=== PATIENT | female | born 1990 | race Caucasian/White ===

== ENCOUNTER 2019-11-25 18:55 | Inpatient (IN) | payer BC ==
[~2019-11-25] VITALS: Ht 167.7 cm; Wt 118.4 kg
[~2019-11-25 18:55] MED LIST: ALBU18HF2 IH; CETI10CA PO; MONT10TA21 PO; RT-ALBUINH IH
--- NOTE | 2019-11-25 19:00 | NUR ---
BETTY CAMPOS , / presented to unit from ED, accompanied by , for INDUCTION. BETTY CAMPOS weighed, gowned, voided, and to bed. EFHM and TOCO applied, VS taken. BETTY CAMPOS oriented to bed controls, call light, TV, heat, and A/C controls.
[2019-11-25] MEDS ORDERED: MISOPROSTOL 100 MCG (CYTOTEC) TAB PO ONE (19:15)
[2019-11-25] MEDS ORDERED: MINERAL OIL CONCENTRATE 99.9% 15 ML UDC TOP PRN (19:15)
[2019-11-25] MEDS ORDERED: D5 LR IV SOLUTION 1,000 ML IV ONE (19:27)
[2019-11-25] MEDS: D5 LR IV SOLUTION 1,000 ML IV SCH (19:54)
[2019-11-25 20:03] VITALS: BP 125/76
[2019-11-25 20:08] LABS: BASOPHILS % (AUTO) 0 % (0-10); EOSINOPHILS # (AUTO) 0.3 10^3/uL (0.0-0.3); EOSINOPHILS % (AUTO) 2 % (0-10); HEMATOCRIT 32 % (35-52); HEMOGLOBIN 10.1 G/DL (11.5-16.0); LYMPHOCYTES # (AUTO) 2.5 X 10^3 (1.0-4.0); LYMPHOCYTES % (AUTO) 15 % (12-44); MEAN CORPUSCULAR HEMOGLOBIN 26 PG (25-34); MEAN CORPUSCULAR HGB CONC 32 G/DL (32-36); MEAN CORPUSCULAR VOLUME 81 FL (80-99); MEAN PLATELET VOLUME 8.9 FL (7.4-10.4); MONOCYTES # (AUTO) 1.1 X 10^3 (0.0-1.0); MONOCYTES % (AUTO) 7 % (0-12); NEUTROPHILS # (AUTO) 12.8 X 10^3 (1.8-7.8); NEUTROPHILS % (AUTO) 76 % (42-75); PLATELET COUNT 471 10^3/uL (130-400); RED CELL DISTRIBUTION WIDTH 15.6 % (10.0-14.5); WHITE BLOOD COUNT 16.7 10^3/uL (4.3-11.0)
--- NOTE | 2019-11-25 20:10 | NUR ---
Dr. Beckwith called for induction orders. Update on pt. Strip, SVE, and vitals reviewed. Orders received.
[2019-11-25 20:15] VITALS: BP 138/85
--- OUTSIDE RECORDS SUMMARY | 2019-11-25 20:21 | XMS REPORT | Continuity of Care Document ---
Author Author The BETTY Mcclellan Organization [employer] Address Unknown Phone Unavailable Allergies Active Description Code Type Severity Reaction Onset Reported/Identified Relationship to Patient Clinical Status Yes No Known Drug Allergies [id number] Drug Allergy Unknown N/A 01/02/2011 Medications There is no data. Problems Date Dx Coded Attending Type Code Diagnosis Diagnosed By 11/21/2019 ALEXYSARNOLD TREVIÑO MARGARET Lily Ot O13.3 GESTATIONAL HTN W/O SIGNIFICANT PROTEINU 11/21/2019 ALEXYSMARGARET BARRETT DO Ot Z3A.00 WEEKS OF GESTATION OF NOT SPEC 11/25/2019 Ot R10.12 LEF T UPPER QUADRANT PAIN 11/25/2019 Ot J18.9 PNEU MONIA, UNSPECIFIED ORGANISM 11/25/2019 Ot J18.9 PNEU MONIA, UNSPECIFIED ORGANISM 11/25/2019 Ot J18.9 PNEU MONIA, UNSPECIFIED ORGANISM 11/25/2019 Ot Z36.9 ENCO UNTER FOR SCREENING, UNSPE 11/25/2019 Ot Z3A.20 20 WEEKS GESTATION OF 11/25/2019 Ot O13.9 GEST ATIONAL HTN W/O SIGNIFICANT PROTEINU Procedures There is no data. Results Test Result Range Urine protein/creatinine mass ratio - 11:27 Urine protein measurement (mass/volume) 22 mg/dL 6-12 Urine creatinine measurement (mass/volume) 70 mg/d L 30-125 Urine protein/creatinine mass ratio 0.31 NRG Encounters ACCT No. Visit Date/Time Discharge Status Pt. Type Provider Facility Loc./Unit Complaint [id number] 11/19/2019 11:00:00 020 23:59:59 CLS Outpatient MARGARET BABCOCK DO Via [facility] LABNPT [id number] 11/25/2019 18:56:[address] Inpatient ALEXYSMARGARET BARRETT DO [facility] LDRP INDUCTION [id number] 11/20/2019 13:40:00 Document Registration [id number] 11/13/2019 09:33:00 Document Registration [id number] 07/19/2019 09:53:00 Document Registration [id number] 12/29/2016 18:22:00 Document Registration [id number] 08/25/2016 16:34:00 Document Registration [id number] 08/17/2016 11:14:00 Document Registration [id number] 08/17/2016 09:20:00 Document Registration
[2019-11-25] MEDS ORDERED: FAMOTIDINE 20MG/2ML IV (PEPCID) ONE (20:25)
[2019-11-25] MEDS ORDERED: FAMOTIDINE 20MG/2ML IV (PEPCID) IVP ONE (20:30)
[2019-11-25 21:10] VITALS: BP 141/93
[2019-11-25] MEDS ORDERED: CATHETER FLUSH 10 ML SYR IV SCH (22:00)
[2019-11-25 22:10] VITALS: BP 151/72
[2019-11-25 23:10] VITALS: BP 136/79
[2019-11-26] VITALS (54 sets, daily range): BP systolic 128–188; BP diastolic 61–108
[2019-11-26] MEDS: MISOPROSTOL 100 MCG (CYTOTEC) TAB PO SCH ×2 (00:57→04:56)
[2019-11-26] MEDS: D5 LR IV SOLUTION 1,000 ML IV SCH ×2 (00:59→08:58)
[2019-11-26] MEDS ORDERED: OXYTOCIN PRE-MIX DRIP 500 ML IV SCH ×2 (08:03→17:07)
[2019-11-26] MEDS ORDERED: HYDROmorphone 2 MG/ML VIAL (DILAUDID) ONE (12:17)
[2019-11-26] MEDS ORDERED: HYDROmorphone 2 MG/ML VIAL (DILAUDID) IV ONE (12:30)
--- NOTE | 2019-11-26 13:12 | History & Physical-OB ---
OB - Chief Complaint & HPI Date/Time Date of Admission: Date of Admission: Nov 25, 2019 at 6:56 pm Date seen by a Provider: Nov 26, 2019 Time Seen by a Provider: 07:45 Chief Complaint/History OB-Reason for Admission/Chief: Induction of Labor Hx : 1 Hx Para: 0 Expected Date of Delivery: Dec 08, 2019 Gestational Age in Weeks: 38 Gestational Age in Days: 2 Indication for induction: medical complication Other reason for admission: Mild PreE Admission Nurse Assessment Rev: Yes History of Labs O pos Antibody neg RNI RPR NR HBsAg NR HIV NR GC neg GBS Neg Allergies and Home Medications Allergies Coded Allergies: cephalexin (Verified Allergy, Intermediate, hives, 11/25/19) Home Medications Albuterol Sulfate 18 Gm Hfa.aer.ad, 18 GM IH DAILY, (Reported) Albuterol Sulfate 1 Puff Puff, 1-2 PUFF IH Q4H, (Reported) 1 PUFF = 90 MCG Cetirizine HCl 10 Mg Capsule, 10 MG PO DAILY, (Reported) Montelukast Sodium 10 Mg Tablet, 10 MG PO DAILY, (Reported) Patient Home Medication List Home Medication List Reviewed: Yes OB - History Hx of Present Care: Yes Ultrasounds: Normal mid trimester US Obstetrical Complications: Pre-eclampsia Medical Complications: None Delivery History Adverse Rxn to Tranfusion: No Patient Past Medical History n/a Social History/Family History HIV/AIDS: No Sexually Transmitted Disease: No Alcohol Use: Denies Use Recreational Drug Use: No Immunizations Hepatitis A: Yes Hepatitis B: Yes OB - Admission Exam Physical Exam Vitals: Vital Signs 11/26/19 11/26/19 11/26/19 01:10 11:36 12:30 Temp 35.9 Pulse 100 Resp 18 B/P (MAP) 144/68 (93) Pulse Ox 98 O2 Delivery Room Air HEENT: NCAT Heart: Rhythm Normal Lungs: Clear Abdomen: Gravid Extremities: Normal Reflexes: Normal Cervical Dilatation: 1cm Effacement: 75% Station: -1 Membranes: Intact Heart Rate: 130's Decelerations: No Decelerations Short Term Variability: Present Web Application Tester Variability: Average (6-25) Contractions on Admission: 6-10 Minutes Apart Intensity: Mild Labs Laboratory Tests Test 11/25/19 19:50 Range/Units White Blood Count 16.7 H 4.3-11.0 10^3/uL Red Blood Count 3.89 L 4.35-5.85 10^6/uL Hemoglobin 10.1 L 11.5-16.0 G/DL Hematocrit 32 L 35-52 % Mean Corpuscular Volume 81 80-99 FL Mean Corpuscular Hemoglobin 26 25-34 PG Mean Corpuscular Hemoglobin Concent 32 32-36 G/DL Red Cell Distribution Width 15.6 H 10.0-14.5 % Platelet Count 471 H 130-400 10^3/uL Mean Platelet Volume 8.9 7.4-10.4 FL Neutrophils (%) (Auto) 76 H 42-75 % Lymphocytes (%) (Auto) 15 12-44 % Monocytes (%) (Auto) 7 0-12 % Eosinophils (%) (Auto) 2 0-10 % Basophils (%) (Auto) 0 0-10 % Neutrophils # (Auto) 12.8 H 1.8-7.8 X 10^3 Lymphocytes # (Auto) 2.5 1.0-4.0 X 10^3 Monocytes # (Auto) 1.1 H 0.0-1.0 X 10^3 Eosinophils # (Auto) 0.3 0.0-0.3 10^3/uL Basophils # (Auto) 0.0 0.0-0.1 10^3/uL OB - Assessment/Plan/Diagnosis Assessment Assessment: induction of labor Admission Dx 29 yo @ 38.2 Mild PreE Pitting edema Admission Status: Inpatient Order (span 2 midnights) Reason for Inpatient Admission: Induction of labor at term Plan Plan: Induction Induction Method: per Misoprostol Protocol MARGARET BABCOCK DO Nov 26, 2019 1:12 pm
[2019-11-26] MEDS ORDERED: fentaNYL 2 mcg/ml BUPIVA 0.125 100 ML ONE (15:40)
[2019-11-26] MEDS ORDERED: LIDOCAINE/EPI 2% 1:200,00 (XYLOCAINE) 10 ML VIAL ONE (16:13)
[2019-11-26] MEDS ORDERED: LIDOCAINE 1% INJ 20 ML 20 ML VIAL ONE (16:22)
[2019-11-26] MEDS ORDERED: KETOROLAC 30 MG/ML VIAL ONE (16:55)
[2019-11-26] MEDS ORDERED: TETANUS,DIPTH,PERTUSS P/F (BOOSTRIX) 0.5 ML VIAL IM ONE (17:15)
[2019-11-26] MEDS ORDERED: WITCH HAZEL(TUCKS) 40 EA JAR TOP PRN (17:15)
[2019-11-26] MEDS ORDERED: DIBUCAINE (NUPERCAINAL) 1% OINT 30 GM TOP PRN (17:15)
[2019-11-26] MEDS ORDERED: MEASLES,MUMPS,RUBELLA 1 EA INJ SQ ONE (17:15)
[2019-11-26] MEDS ORDERED: BENZOCAINE/MENTHOL (DERMOPLAST) 60 ML CAN TP PRN (17:15)
--- NOTE | 2019-11-26 17:16 | OB Labor & Delivery Record ---
L&D History Date of Service Date of Service: Nov 26, 2019 History Expected Date of Delivery: Dec 08, 2019 Gestational Age in Weeks: 38 Hx : 1 Hx Para: 0 Complications Events: Routine care Operative Indications (Cesarea: N/A-Vaginal Delivery Intrapartal Events: None L&D Stage1 Stage One Onset of Labor - Date: Nov 26, 2019 Monitors and Tracing Monitor Mode: External Heart Rate: 135 Monitor Accelerations: Uniform Monitor Decelerations: None Station: -3 Retirement Variability: Average (6-10) Short Term Variability: Present Presentation: Vertex Vital Signs VS - Last 72 Hours, by Label 11/25/19 11/25/19 11/25/19 11/25/19 20:03 20:15 21:10 22:10 Temp 36.8 36.7 Pulse 116 129 114 109 Resp 20 B/P (MAP) 125/76 (92) 141/93 (109) 151/72 (98) Pulse Ox 97 O2 Delivery Room Air Room Air Room Air Room Air 11/25/19 11/26/19 11/26/19 11/26/19 23:10 00:10 01:10 02:10 Pulse 91 90 87 74 Resp 18 18 18 18 B/P (MAP) 136/79 (98) 135/78 (97) 132/75 (94) 135/78 (97) Pulse Ox 99 98 O2 Delivery Room Air Room Air Room Air Room Air 11/26/19 11/26/19 11/26/19 11/26/19 03:10 04:10 05:10 06:10 Temp 36.4 Pulse 86 80 98 86 Resp 18 18 18 18 B/P (MAP) 136/72 (93) 135/81 (99) 136/93 (107) 136/81 (99) O2 Delivery Room Air Room Air Room Air Room Air 11/26/19 11/26/19 11/26/19 11/26/19 07:10 08:10 08:31 08:33 Temp 36.2 Pulse 94 99 98 106 Resp 18 18 18 18 B/P (MAP) 141/90 (107) 148/82 (104) 169/82 (111) 174/82 (112) O2 Delivery Room Air Room Air Room Air Room Air 11/26/19 11/26/19 11/26/1920 08:46 09:01 09:18 09:31 Pulse 90 97 96 90 Resp 18 18 18 18 B/P (MAP) 165/79 (107) 158/86 (110) 151/65 (93) 131/63 (85) O2 Delivery Room Air Room Air Room Air Room Air 11/26/19 11/26/19 11/26/19 11/26/19 09:45 10:02 10:17 10:32 Pulse 95 97 93 93 Resp 18 18 18 18 B/P (MAP) 147/68 (94) 154/77 (102) 128/81 (97) 143/80 (101) O2 Delivery Room Air Room Air Room Air Room Air 11/26/19 11/26/19 11/26/19 11/26/19 10:47 11:00 11:15 11:36 Temp 35.9 Pulse 89 88 101 87 Resp 18 18 18 18 B/P (MAP) 138/73 (94) 142/84 (103) 142/82 (102) 145/75 (98) O2 Delivery Room Air Room Air Room Air Room Air 11/26/19 11/26/19 11/26/19 11/26/19 11:47 12:00 12:16 12:30 Pulse 102 102 96 100 Resp 18 18 18 18 B/P (MAP) 144/90 (108) 151/91 (111) 139/67 (91) 144/68 (93) O2 Delivery Room Air Room Air Room Air Room Air 11/26/19 11/26/19 11/26/19 11/26/19 12:46 12:48 13:02 13:16 Pulse 82 94 98 100 Resp 18 18 18 18 B/P (MAP) 151/86 (107) 159/93 (115) 134/72 (92) 136/104 (115) O2 Delivery Room Air Room Air Room Air Room Air 11/26/19 11/26/19 11/26/19 11/26/19 13:22 13:24 13:33 13:46 Pulse 97 87 99 115 Resp 18 18 8 18 B/P (MAP) 188/84 (118) 167/79 (108) 144/79 (100) 134/73 (93) O2 Delivery Room Air Room Air Room Air Room Air 11/26/19 11/26/19 14:01 14:15 Temp 36.3 Pulse 105 96 Resp 18 18 B/P (MAP) 140/86 (104) 147/87 (107) O2 Delivery Room Air Room Air Rupture of Membranes Spontaneous Ruture of Membrane: Yes Amniotic Membrane Rupture Time: 1242 Amniotic Membrane Fluid Desc.: Clear Vaginal Bleeding Description: Normal Show Progress/Notes Patient given PO cytotec overnight. Started on pitocin this AM, and AROM done around noon. She progressed rapidly and without epidural to complete and + 2 station. L&D Stage2 Stage Two Stage II Date: Nov 26, 2019 Monitors and Tracing Monitor Mode: External Heart Rate: 135 Monitor Accelerations: None Monitor Decelerations: Variable Retirement Variability: Average (6-10) Short Term Variability: Present Position: Right Occiput Anterior (Puedendal block done with minimal relief using 1% lidocaine w/o epi) Presentation: Vertex Cord Descript/Complications Cord Vessel Description: 3 Vessels Delivery Type Delivery Method: Spontaneous Vaginal Anterior Shoulder: Left Episiotomy/Perineal Laceration Laceraction(s)/Extensions: Yes Episiotomy Description: Midline Degree (describe repair) Midline episiotomy repaired using 3-0 and 2-0 vicryl suture in usual fashion Condition of Delivery 1 minute Comment: 7 5 minute Comment: 9 Notes Live male infant weight 6lbs 7 oz Condition of Infant Condition of Infant: Living Exam: No Observed Abnormalities Resuscitation Resuscitation: N/A - Spontaneous Resp L&D Stage3 Stage Three Stage III Date: Nov 26, 2019 Pictocin Pitocin Administration mu/min: 8 Pitocin ml/hr: 8 Pitocin Administration Comment: 30 mu wide open at delivery of placenta Placenta Delivery Placenta Delivery: Spontaneous Delivery Summary Summary Estimated blood loss (mL): 350 350 Attending at delivery: Carol Babcock DO Condition of Delivery Examined: Cervix Examined, Uterus Explored Post Hemorrhage: No Condition of Mother stable Condition of (s) stable CAROL BABCOCK DO Nov 26, 2019 17:16
[2019-11-26] MEDS ORDERED: IBUPROFEN 600 MG (MOTRIN) TAB PO SCH (18:00)
--- NOTE | 2019-11-26 19:15 | NUR ---
REFER TO LABOR FLOW SHEET.
--- NOTE | 2019-11-26 20:53 | NUR ---
Called Dr. Beckwith, update given, new order requested & rc'd for Lortab 1 tab q 4 hrs prn pain.
[2019-11-26] MEDS ORDERED: HYDROcodone/APAP 5 MG/325 MG (LORTAB) TAB PO PRN (21:00)
[2019-11-26] MEDS ORDERED: DOCUSATE SODIUM 100 MG (COLACE) CAP PO SCH (21:00)
[2019-11-26] MEDS ORDERED: CATHETER FLUSH 10 ML SYR IV SCH (22:00)
[2019-11-27] MEDS ORDERED: PRENATAL VITAMIN 1 EA TAB PO SCH (07:00)
[2019-11-27] MEDS ORDERED: FERROUS SULF 325 MG (IRON) TAB PO SCH (09:00)
[2019-11-27] MEDS ORDERED: LABETALOL 200 MG (NORMODYNE) TAB PO ONE (13:54)
--- NOTE | 2019-11-28 07:18 | Postpartum Progress Note ---
Note Note Day # 1 Subjective: Patient is without complaints. Ambulating, voiding. Tolerating a regular diet without nausea or vomiting. Normal lochia. Minor pain at episiotomy site. Pain is well controlled with oral pain medications. Breast feeding without issues. Objective: [] Physical Exam: General - Alert and oriented, no apparent distress Abdomen - Soft, appropriately tender to palpation, non-distended, fundus firm at umbilicus Extremities - no edema, negative Tavia's bilaterally [] Assessment: post- day # 1, status post 1 vaginal delivery. Recovering well, hemodynamically stable [] Plan: Routine care. Encourage breast feeding. Encourage ambulation. Ferrous sulfate supplementation. Plan for discharge [] RUFINO OBANDO [facility] Nov 28, 2019 07:18
--- NOTE | 2019-11-28 07:19 | Postpartum Progress Note ---
Note Note Day # [] Subjective: Patient is without complaints. Ambulating, voiding. Tolerating a regular diet without nausea or vomiting. Normal lochia. Pain is well controlled with oral pain medications. [] feeding. [] Objective: [] Physical Exam: General - Alert and oriented, no apparent distress Abdomen - Soft, appropriately tender to palpation, non-distended, fundus firm at umbilicus Extremities - no edema, negative Tavia's bilaterally [] Assessment: [] post- day # [], status post [] vaginal delivery. Recovering well, hemodynamically stable [] Plan: Routine care. Encourage breast feeding. Encourage ambulation. Ferrous sulfate supplementation. Plan for discharge [] RUFINO OBANDO [facility] Nov 28, 2019 07:19
[2019-11-28 08:35] LABS: HEMATOCRIT 29 % (35-52); HEMOGLOBIN 9.4 G/DL (11.5-16.0); MEAN CORPUSCULAR HEMOGLOBIN 27 PG (25-34); MEAN CORPUSCULAR VOLUME 83 FL (80-99)
[2019-11-28 08:36] LABS: BASOPHILS % (AUTO) 0 % (0-10); EOSINOPHILS # (AUTO) 0.3 10^3/uL (0.0-0.3); EOSINOPHILS % (AUTO) 2 % (0-10); LYMPHOCYTES # (AUTO) 2.5 X 10^3 (1.0-4.0); LYMPHOCYTES % (AUTO) 14 % (12-44); MEAN CORPUSCULAR HGB CONC 33 G/DL (32-36); MONOCYTES # (AUTO) 1.2 X 10^3 (0.0-1.0); MONOCYTES % (AUTO) 7 % (0-12); NEUTROPHILS # (AUTO) 13.9 X 10^3 (1.8-7.8); NEUTROPHILS % (AUTO) 78 % (42-75); PLATELET COUNT 387 10^3/uL (130-400); RED CELL DISTRIBUTION WIDTH 15.3 % (10.0-14.5)
[2019-11-28 08:43] LABS: BAND NEUTROPHILS 7 %; BASOPHILS % (MANUAL) 0 %; EOSINOPHILS % (MANUAL) 1 %; LYMPHOCYTES % (MANUAL) 14 %; MONOCYTES % (MANUAL) 3 %; NEUTROPHILS % (MANUAL) 75 %
[2019-11-28 08:44] LABS: POIKILOCYTOSIS SLIGHT
[2019-11-28 08:45] LABS: ANISOCYTOSIS SLIGHT; POLYCHROMASIA SLIGHT; SPHEROCYTES SLIGHT
[2019-11-28] MEDS ORDERED: LABETALOL 200 MG (NORMODYNE) TAB PO SCH (09:00)
== END 2019-11-27 19:10 | disposition home or self-care (01) | DRG 807 ==
LOC: LDRP 18:56 → MERGE 19:00 → LDRP 11-26 18:23
PROVIDERS: ADMIT Obstetrics & Gynecology; ATTEND Obstetrics & Gynecology
PROC: 10E0XZZ Delivery of Products of Conception, External Approach (ICD-10-PCS; principal; 2019-11-26)
PROC: 10907ZC Drainage of Amniotic Fluid, Therapeutic from Products of Conception, Via Natural or Artificial Opening (ICD-10-PCS; 2019-11-26)
PROC: 0W8NXZZ Division of Female Perineum, External Approach (ICD-10-PCS; 2019-11-26)
DX: O14.04 Mild to moderate pre-eclampsia, complicating childbirth (principal); Z37.0 Single live birth; Z3A.38 38 weeks gestation of pregnancy; O12.04 Gestational edema, complicating childbirth
CPT/HCPCS: 36415; 85007; 85025; 85027; 86850; 86900; 86901

== ENCOUNTER → 2022-10-14 | Outpatient (CLI) | payer BC ==
[~2022-10-14] MED LIST changes: +ALBU8.5H6 IH; +MONT-47 PO; -MONT10TA21 PO; -RT-ALBUINH IH
--- NOTE | 2022-10-14 14:00 | Diagnostic Imaging Report ---
INDICATION: survey. TECHNIQUE: Multiple real-time grayscale images were obtained over the gravid uterus. COMPARISON: None FINDINGS: There is a single live fetus in a cephalic presentation. heart rate was recorded at 153 bpm. Placenta is posterior. No previa is detected. The amniotic fluid index is 11.5 cm. survey demonstrates kidneys, bladder and stomach to be unremarkable. brain is unremarkable. There is a four-chamber heart. There is a three-vessel cord with normal insertion. The spine is unremarkable. Maternal adnexa was not evaluated. Biometrical measurements are as follows: Biparietal 4.72 cm, age 20 weeks 2 days. Head circumference 17.96 cm, age 20 weeks 3 days. Abdominal circumference 15.28 cm, age 20 weeks 4 days. Femur length 3.19 cm, age 20 weeks 0 days. Sonographic estimate age: 20 weeks 3 days. Sonographic estimated date of delivery: 02/28/2023. Estimated Weight: 341 gm (+/- 50 gm). LMP percentile: 68%. heart rate: 153 beats per minute. number: 1 of 1. IMPRESSION: Single live IUP of 20 weeks 3 days gestational age. Estimated date of confinement sonographically is 02/28/2023. No complicating features are detected. Dictated by: Dictated on workstation # [id number]
== END ==
LOC: RAD 09:40
PROVIDERS: ATTEND Nurse Practitioner Women's Health
DX: Z34.92 Encounter for supervision of normal pregnancy, unspecified, second trimester (principal); Z3A.20 20 weeks gestation of pregnancy
CPT/HCPCS: 76805

== ENCOUNTER → 2023-01-05 | Outpatient (CLI) | payer BC | LOC: LABNPT 11:10 | PROVIDERS: ATTEND Nurse Practitioner Women's Health | DX: Z53.9 Procedure and treatment not carried out, unspecified reason (principal) ==

== ENCOUNTER 2023-01-17 11:17 | Outpatient (CLI) | payer BC ==
[~2023-01-17] VITALS: Ht 167.7 cm; Wt 119.3 kg
--- NOTE | 2023-01-17 12:12 | OB Triage Report ---
Standard Progress Note Progress Notes/Assess & Plan Date Seen by a Provider: Jan 17, 2023 Time Seen by a Provider: 12:00 Expected Date of Delivery: Mar 04, 2023 Gestational Age in Weeks: 33 Gestational Age in Days: 3 LMP/JACK Comment: This 32yo presents to L&D @ 33w3d EGA with c/o n/v last night but has not vomited over the last 4hrs. She denies LOF VB or CTXs FHT 140s TOCOs occasional Progress/Assessment & Plan IUP @ 33w3d n/v dehydration Oral hydration DC to home Keep next appt QUE LOPEZ DO Jan 17, 2023 12:12
[2023-01-17 12:14] VITALS: BP 135/82
== END 2023-01-17 13:05 | disposition home or self-care (01) ==
LOC: LDRP 11:17 → WSo 11:17
PROVIDERS: ATTEND Obstetrics & Gynecology
DX: O26.893 Other specified pregnancy related conditions, third trimester (principal); R11.2 Nausea with vomiting, unspecified; Z3A.33 33 weeks gestation of pregnancy
CPT/HCPCS: 99213

== ENCOUNTER → 2023-01-19 | Outpatient (CLI) | payer BC | LOC: LABNPT 09:57 | PROVIDERS: ATTEND Nurse Practitioner Women's Health | DX: O13.9 Gestational [pregnancy-induced] hypertension without significant proteinuria, unspecified trimester (principal); Z3A.00 Weeks of gestation of pregnancy not specified | CPT/HCPCS: 82570; 84156 ==

== ENCOUNTER → 2023-02-03 | Outpatient (CLI) | payer BC | LOC: LABNPT 10:44 | PROVIDERS: ATTEND Obstetrics & Gynecology | DX: R80.9 Proteinuria, unspecified (principal) | CPT/HCPCS: 82570; 84156 ==

== ENCOUNTER → 2023-02-10 | Outpatient (CLI) | payer BC | LOC: LABNPT 09:33 | PROVIDERS: ATTEND Obstetrics & Gynecology | DX: O13.9 Gestational [pregnancy-induced] hypertension without significant proteinuria, unspecified trimester (principal) | CPT/HCPCS: 82570; 84156 ==

== ENCOUNTER → 2023-02-17 | Outpatient (CLI) | payer BC ==
[~2023-02-17] MED LIST changes: +ACHD5005 PO; +BENZ78AE5 TP; +DIBU30OI TOP; +DOCU100C37 PO; +FERR325T24 PO; +IBUP-844 PO; +LABE200T10 PO
[2023-02-17 11:31] LABS: URINE CREATININE FOR RATIO 43 MG/DL (30-125); URINE PROTEIN FOR RATIO ONLY < 6 MG/DL (6-12)
== END ==
LOC: LABNPT 11:03
PROVIDERS: ATTEND Obstetrics & Gynecology
DX: O13.9 Gestational [pregnancy-induced] hypertension without significant proteinuria, unspecified trimester (principal)
CPT/HCPCS: 82570; 84156

== ENCOUNTER 2023-02-20 19:00 | Inpatient (IN) | payer BC ==
[~2023-02-20] VITALS: Ht 167.7 cm; Wt 124.7 kg
[~2023-02-20 19:00] MED LIST changes: -ACHD5005 PO; -BENZ78AE5 TP; -DIBU30OI TOP; -DOCU100C37 PO; -FERR325T24 PO; -IBUP-844 PO; -LABE200T10 PO
[2023-02-20 21:46] VITALS: BP 149/73
[2023-02-20] MEDS ORDERED: LACTATED RINGERS 1,000 ML 500 ML IV PRN (23:00)
[2023-02-20 23:16] LABS: AMORPHOUS SEDIMENT,UR FEW AMOR URATES /LPF; BACTERIA,URINE MODERATE /HPF; BILIRUBIN,URINE NEGATIVE (NEGATIVE); CLARITY,URINE SLIGHTLY CLOUDY; COLOR,URINE YELLOW; GLUCOSE, URINE (UA) NEGATIVE (NEGATIVE); KETONES,URINE NEGATIVE (NEGATIVE); LEUKOCYTE ESTERASE ,URINE 1+ (NEGATIVE); NITRITE,URINE NEGATIVE (NEGATIVE); PROTEIN,URINE TRACE (NEGATIVE)
[2023-02-20 23:17] LABS: BASOPHILS # (AUTO) 0.1 10^3/uL (0.0-0.1); BASOPHILS % (AUTO) 0 % (0-10); EOSINOPHILS # (AUTO) 0.2 10^3/uL (0.0-0.3); EOSINOPHILS % (AUTO) 1 % (0-10); HEMATOCRIT 32 % (35-52); HEMOGLOBIN 9.9 g/dL (11.5-16.0); LYMPHOCYTES # (AUTO) 3.1 10^3/uL (1.0-4.0); LYMPHOCYTES % (AUTO) 17 % (12-44); MEAN CORPUSCULAR HEMOGLOBIN 23 pg (25-34); MEAN CORPUSCULAR HGB CONC 31 g/dL (32-36); MEAN CORPUSCULAR VOLUME 73 fL (80-99); MEAN PLATELET VOLUME 8.7 fL (9.0-12.2); MONOCYTES # (AUTO) 1.2 10^3/uL (0.0-1.0); MONOCYTES % (AUTO) 7 % (0-12); NEUTROPHILS % (AUTO) 73 % (42-75); PLATELET COUNT 498 10^3/uL (130-400); WHITE BLOOD COUNT 17.9 10^3/uL (4.3-11.0)
[2023-02-20 23:27] LABS: ALBUMIN 3.4 GM/DL (3.2-4.5); POTASSIUM 3.9 MMOL/L (3.6-5.0)
[2023-02-20 23:28] LABS: CALCIUM 9.1 MG/DL (8.5-10.1)
[2023-02-20 23:29] LABS: TOTAL PROTEIN 7.7 GM/DL (6.4-8.2)
[2023-02-20 23:31] LABS: BILIRUBIN,TOTAL 0.2 MG/DL (0.1-1.0)
[2023-02-20 23:33] LABS: CREATININE SERUM 0.79 MG/DL (0.60-1.30)
[2023-02-20 23:36] LABS: URIC ACID 5.4 MG/DL (2.6-7.2)
[2023-02-21] VITALS (56 sets, daily range): BP systolic 107–171; BP diastolic 51–93
[2023-02-21 00:04] LABS: BAND NEUTROPHILS 4 %; LYMPHOCYTES % (MANUAL) 18 %; MONOCYTES % (MANUAL) 4 %; MYELOCYTES % 2 %; NEUTROPHILS % (MANUAL) 69 %; POLYCHROMASIA SLIGHT; REACTIVE LYMPHOCYTES 3 %
[2023-02-21] MEDS ORDERED: NS IV 1000 ML 1,000 ML IV SCH (04:15)
[2023-02-21] MEDS ORDERED: TERBUTALINE INJ 1 MG/ML (BRETHINE) AMP SC PRN (04:15)
[2023-02-21] MEDS: D5 LR 1,000 ML IV SOLN 1,000 ML IV SCH ×2 (05:40→13:37)
[2023-02-21] MEDS ORDERED: CATHETER FLUSH 10 ML SYR IV SCH ×2 (06:00→22:00)
[2023-02-21] MEDS ORDERED: FLU QUADRIvalent (6 months+) 60 mcg/0.5 ml 2023-2024 (FLUARIX) IM ONE (06:45)
--- NOTE | 2023-02-21 07:13 | History & Physical-OB ---
OB - Chief Complaint & HPI Date/Time Date of Admission: Date of Admission: Feb 20, 2023 at 19:00 Date seen by a Provider: Feb 21, 2023 Time Seen by a Provider: 07:05 Chief Complaint/History OB-Reason for Admission/Chief: Induction of Labor Hx : 2 Hx Para: 1 Expected Date of Delivery: Mar 04, 2023 Gestational Age in Weeks: 38 Gestational Age in Days: 3 Admission Nurse Assessment Rev: Yes History of Labs See labs Allergies and Home Medications Allergies Coded Allergies: cephalexin (Verified Allergy, Intermediate, hives, 11/25/19) Patient Home Medication List Home Medication List Reviewed: Yes Albuterol Sulfate (Ventolin Hfa) 18 Gm Hfa.aer.ad, 18 GM IH DAILY, (Reported) Entered as Reported by: FARNAZ RAGLAND on 08/17/16 1138 Last Action: Reviewed Albuterol Sulfate (Ventolin Hfa) 1 Puff Puff, 1-2 PUFF IH Q4H, (Reported) Entered as Reported by: FARNAZ RAGLAND on 08/17/16 1140 Last Action: Reviewed Cetirizine HCl (Zyrtec) 10 Mg Capsule, 10 MG PO DAILY, (Reported) Entered as Reported by: FARNAZ RAGLAND on 08/17/16 113 Last Action: Reviewed Montelukast Sodium (Singulair) 10 Mg Tablet, 10 MG PO DAILY, (Reported) Entered as Reported by: FARNAZ RAGLAND on 08/17/161136 Last Action: Reviewed OB - History Hx of Present Care: Yes Ultrasounds: Normal mid trimester US Obstetrical Complications: Gestational Hypertension Medical Complications: None Delivery History Adverse Rxn to Tranfusion: No Patient Past Medical History n/a Social History/Family History 2nd Hand Smoke Exposure: No Immunizations Influenza Vaccine Up-to-Date: No; Not Current Hepatitis A: Yes Hepatitis B: Yes OB - Admission Exam Physical Exam Vitals: Vital Signs 02/21/23 02/21/23 04:48 06:10 Temp 36.0 Pulse 103 Resp 18 B/P (MAP) 134/67 (89) Pulse Ox 100 O2 Delivery Room Air HEENT: NCAT Heart: Rhythm Normal Lungs: Clear Abdomen: Gravid Extremities: Normal Reflexes: Normal Cervical Dilatation: 1cm Effacement: 75% Station: -3 Membranes: Intact Heart Rate: 130's Accelerations: Accelerations Present Decelerations: No Decelerations Short Term Variability: Present Snf Variability: Average (6-25) Contractions on Admission: 6-10 Minutes Apart Intensity: Mild Labs Laboratory Tests Test 02/20/23 22:40 02/20/23 23:05 Range/Units Urine Color YELLOW Urine Clarity SLIGHTLY CLOUDY Urine pH 6.0 5-9 Urine Specific [place] 1.025 H 1.016-1.022 Urine Protein TRACE H NEGATIVE Urine Glucose (UA) NEGATIVE NEGATIVE Urine Ketones NEGATIVE NEGATIVE Urine Nitrite NEGATIVE NEGATIVE Urine Bilirubin NEGATIVE NEGATIVE Urine Urobilinogen 0.2 < = 1.0 MG/DL Urine Leukocyte Esterase 1+ H NEGATIVE Urine RBC (Auto) 1+ H NEGATIVE Urine RBC 2-5 H /HPF Urine WBC 2-5 /HPF Urine Squamous Epithelial Cells 10-25 H /HPF Urine Crystals PRESENT H /LPF Urine Amorphous Sediment FEW VONNIE URATES H /LPF Urine Bacteria MODERATE H /HPF Urine Casts NONE /LPF Urine Mucus SMALL H /LPF Urine Culture Indicated YES Urine Creatinine 144 H 30-125 MG/DL Urine Protein/Creatinine Ratio 0.11 White Blood Count 17.9 H 4.3-11.0 10^3/uL Red Blood Count 4.40 3.80-5.11 10^6/uL Hemoglobin 9.9 L 11.5-16.0 g/dL Hematocrit 32 L 35-52 % Mean Corpuscular Volume 73 L 80-99 fL Mean Corpuscular Hemoglobin 23 L 25-34 pg Mean Corpuscular Hemoglobin Concent 31 L 32-36 g/dL Red Cell Distribution Width 16.0 H 10.0-14.5 % Platelet Count 498 H 130-400 10^3/uL Mean Platelet Volume 8.7 L 9.0-12.2 fL Immature Granulocyte % (Auto) 2 % Neutrophils (%) (Auto) 73 42-75 % Lymphocytes (%) (Auto) 17 12-44 % Monocytes (%) (Auto) 7 0-12 % Eosinophils (%) (Auto) 1 0-10 % Basophils (%) (Auto) 0 0-10 % Neutrophils # (Auto) 13.0 H 1.8-7.8 10^3/uL Lymphocytes # (Auto) 3.1 1.0-4.0 10^3/uL Monocytes # (Auto) 1.2 H 0.0-1.0 10^3/uL Eosinophils # (Auto) 0.2 0.0-0.3 10^3/uL Basophils # (Auto) 0.1 0.0-0.1 10^3/uL Immature Granulocyte # (Auto) 0.4 H 0.0-0.1 10^3/uL Neutrophils % (Manual) 69 % Lymphocytes % (Manual) 18 % Monocytes % (Manual) 4 % Myelocytes % 2 % Band Neutrophils 4 % Reactive Lymphocytes 3 % Polychromasia SLIGHT Sodium Level 132 L 135-145 MMOL/L Potassium Level 3.9 3.6-5.0 MMOL/L Chloride Level 103 98-107 MMOL/L Carbon Dioxide Level 19 L 21-32 MMOL/L Anion Gap 10 5-14 MMOL/L Blood Urea Nitrogen 11 7-18 MG/DL Creatinine 0.79 0.60-1.30 MG/DL Estimat Glomerular Filtration Rate 102 BUN/Creatinine Ratio 14 Glucose Level 91 70-105 MG/DL Uric Acid 5.4 2.6-7.2 MG/DL Calcium Level 9.1 8.5-10.1 MG/DL Corrected Calcium 9.6 8.5-10.1 MG/DL Total Bilirubin 0.2 0.1-1.0 MG/DL Aspartate Amino Transf (AST/SGOT) 12 5-34 U/L Alanine Aminotransferase (ALT/SGPT) 10 0-55 U/L Alkaline Phosphatase 155 H 40-136 U/L Total Protein 7.7 6.4-8.2 GM/DL Albumin 3.4 3.2-4.5 GM/DL Syphilis Total Antibody Negative Negative OB - Assessment/Plan/Diagnosis Assessment Assessment: induction of labor Admission Dx 32 yo @ 38 weeks GHTN GBS neg Admission Status: Inpatient Order (span 2 midnights) Reason for Inpatient Admission: IOL 38 weeks Plan Plan: Induction Induction Method: per Misoprostol Protocol MARGARET BABCCOK DO Feb 21, 2023 07:13
[2023-02-21] MEDS ORDERED: fentaNYL 2 mcg/ml BUPIVA 0.125 100 ML ONE (07:46)
[2023-02-21] MEDS ORDERED: fentaNYL INJECTION 100 MCG/2 ML VIAL ONE (08:32)
[2023-02-21] MEDS ORDERED: BUPIVACAINE 0.25% 10 ML VIAL ONE (08:32)
[2023-02-21] MEDS ORDERED: LACTATED RINGERS 1,000 ML 1,000 ML IV ONE ×2 (09:15)
[2023-02-21] MEDS ORDERED: fentaNYL 2 mcg/ml BUPIVA 0.125 100 ML EPI SCH (09:15)
[2023-02-21] MEDS ORDERED: ONDANSETRON INJECTION 4 MG/2 ML (SDV) IV PRN (09:15)
[2023-02-21] MEDS ORDERED: NALOXONE 0.4 MG/ML 1 ML VIAL IV PRN ×2 (09:15→17:00)
[2023-02-21] MEDS ORDERED: fentaNYL INJECTION 100 MCG/2 ML VIAL INJ ONE (09:15)
[2023-02-21] MEDS ORDERED: OXYTOCIN DRIP PRE-MIX 500 ML IV SCH (10:45)
[2023-02-21] MEDS ORDERED: LIDOCAINE 2% w/EPI 1:200,000 20 ML VIAL ONE (16:18)
[2023-02-21] MEDS: OXYTOCIN DRIP PRE-MIX 500 ML IV SCH ×2 (16:35→17:07)
[2023-02-21] MEDS ORDERED: BENZOCAINE/MENTHOL (DERMOPLAST) 56 ML CAN TP PRN (17:00)
[2023-02-21] MEDS ORDERED: Tetanus/Diphtheria/Pertussis (Acell) ADULT Vaccine 0.5 ML IM ONE (17:00)
[2023-02-21] MEDS ORDERED: HYDROcodone/ACETAMINOPHEN 5 MG/325 MG TABLET PO PRN (17:00)
[2023-02-21] MEDS ORDERED: WITCH HAZEL(TUCKS) 40 EA JAR TOP PRN (17:00)
[2023-02-21] MEDS ORDERED: MEASLES, MUMPS, RUBELLA VACCINE (MMR) SQ ONE (17:00)
[2023-02-21] MEDS ORDERED: DIBUCAINE 1% OINTMENT 28 GM TUBE TOP PRN (17:00)
--- NOTE | 2023-02-21 17:09 | OB Labor & Delivery Record ---
L&D History Date of Service Date of Service: Feb 21, 2023 History Expected Date of Delivery: Mar 04, 2023 Gestational Age in Weeks: 38 Hx : 2 Hx Para: 1 Complications Events: Routine care Operative Indications (Cesarea: N/A-Vaginal Delivery Intrapartal Events: None L&D Stage1 Stage One Onset of Labor - Date: Feb 21, 2023 Monitors and Tracing Monitor Mode: External Heart Rate: 130 Monitor Accelerations: Uniform Monitor Decelerations: None Station: -2 Assisted Variability: Average (6-10) Short Term Variability: Present Vital Signs VS - Last 72 Hours, by Label 02/20/23 02/20/23 02/21/23 02/21/23 21:46 21:46 04:48 05:40 Temp 36.0 36.0 36.0 Pulse 99 99 106 99 Resp 18 18 18 18 B/P (MAP) 149/73 (98) 140/79 (99) 137/79 (98) Pulse Ox 98 98 100 O2 Delivery Room Air Room Air Room Air Room Air 02/21/23 02/21/23 02/21/23 02/21/23 06:10 07:10 07:40 08:39 Pulse 103 100 107 109 Resp 18 20 20 B/P (MAP) 134/67 (89) 133/73 (93) 146/71 (96) 150/80 (103) Pulse Ox 100 O2 Delivery Room Air Room Air Room Air Room Air 02/21/23 02/21/23 02/21/23 02/21/23 08:42 08:51 08:54 08:57 Pulse 122 115 111 107 B/P (MAP) 164/91 (115) 132/83 (99) 140/93 (109) 133/87 (102) Pulse Ox 100 100 100 100 O2 Delivery Room Air Room Air Room Air Room Air 02/21/23 02/21/23 02/21/23 02/21/23 09:03 09:06 09:09 09:12 Temp 36.5 Pulse 104 103 109 108 B/P (MAP) 124/75 (91) 136/74 (94) 139/72 (94) 144/67 (92) Pulse Ox 99 99 99 99 O2 Delivery Room Air Room Air Room Air Room Air 02/21/23 02/21/23 02/21/23 02/21/23 09:17 09:23 09:27 09:33 Pulse 94 103 107 98 B/P (MAP) 131/60 (83) 137/65 (89) 134/63 (86) 134/70 (91) Pulse Ox 99 99 99 100 O2 Delivery Room Air Room Air Room Air Room Air 02/21/23 02/21/23 02/21/23 02/21/23 09:38 09:55 10:10 10:25 Temp 36.2 Pulse 102 99 110 99 B/P (MAP) 125/66 (85) 151/74 (99) 142/69 (93) 170/78 (108) Pulse Ox 100 99 99 O2 Delivery Room Air Room Air Room Air Room Air 02/21/23 02/21/23 02/21/23 02/21/23 10:40 10:55 11:10 11:25 Pulse 90 91 101 100 B/P (MAP) 158/73 (101) 149/70 (96) 171/77 (108) 148/68 (94) O2 Delivery Room Air Room Air Room Air Room Air 02/21/23 02/21/23 02/21/23 02/21/23 11:40 11:55 12:10 12:25 Pulse 89 83 110 100 B/P (MAP) 134/66 (88) 126/63 (84) 118/59 (78) 118/59 (78) O2 Delivery Room Air Room Air Room Air Room Air 02/21/23 02/21/23 02/21/23 02/21/23 12:40 12:55 13:10 13:25 Pulse 92 110 112 108 B/P (MAP) 107/51 (69) 127/63 (84) 136/70 (92) 134/78 (96) O2 Delivery Room Air Room Air Room Air Room Air 02/21/23 13:40 Pulse 117 B/P (MAP) 126/67 (86) O2 Delivery Room Air Rupture of Membranes Spontaneous Ruture of Membrane: No Amniotic Membrane Rupture Time: 1030 Amniotic Membrane Fluid Desc.: Clear Vaginal Bleeding Description: Normal Show Induction/Anesthesia Epidural Cath Placement - Time: 0850 Progress/Notes Patient admitted last night for IOL due to GHTN. Misoprostol given overnight. AROM performed this am after epidural placed. Pitocin augmentation started and reached max dose of 6 mu. She progressed rapidly to complete and + 2 station. L&D Stage2 Stage Two Stage II Date: Feb 21, 2023 Monitors and Tracing Monitor Mode: External Heart Rate: 130 Monitor Accelerations: Uniform Monitor Decelerations: Variable Grain Combiner Variability: Average (6-10) Short Term Variability: Present Position: Right Occiput Anterior Presentation: Vertex Cord Descript/Complications Cord Vessel Description: 3 Vessels Delivery Type Delivery Method: Spontaneous Vaginal Anterior Shoulder: Right Episiotomy/Perineal Laceration Laceraction(s)/Extensions: No Episiotomy Description: Perineal Extension/lac, 3rd degree Degree (describe repair) 3rd degree perineal laceration repaired using 3-0 and 2-0 vicryl suture in usual fashion Condition of Infant Delivery 1 minute Comment: 9 5 minute Comment: 9 Notes live male weight 7lbs 13 oz Condition of Condition of : Living Exam: No Observed Abnormalities Resuscitation Resuscitation: N/A - Spontaneous Resp L&D Stage3 Stage Three Stage III Date: Feb 21, 2023 Pictocin Pitocin Administration mu/min: 6 Pitocin ml/hr: 6 Pitocin Administration Comment: 1356 pitocin increased Placenta Delivery Placenta Delivery: Spontaneous Delivery Summary Summary Estimated blood loss (mL): 350 Attending at delivery: Margaret Babcock DO Condition of Delivery Examined: Cervix Examined, Uterus Explored Post Hemorrhage: No Condition of Mother stable Condition of Infant (s) stable MARGARET BABCOCK DO Feb 21, 2023 17:08
[2023-02-21] MEDS: IBUPROFEN 600 MG TABLET PO SCH (18:18)
[2023-02-21] MEDS: DOCUSATE SODIUM 100 MG CAPSULE PO SCH (21:21)
[2023-02-22 01:05] VITALS: BP 143/86
[2023-02-22] MEDS: IBUPROFEN 600 MG TABLET PO SCH ×3 (01:05→14:24)
[2023-02-22 04:00] VITALS: BP 136/85
[2023-02-22 06:04] LABS: BASOPHILS % (AUTO) 0 % (0-10); EOSINOPHILS # (AUTO) 0.2 10^3/uL (0.0-0.3); EOSINOPHILS % (AUTO) 1 % (0-10); HEMATOCRIT 30 % (35-52); LYMPHOCYTES # (AUTO) 2.6 10^3/uL (1.0-4.0); LYMPHOCYTES % (AUTO) 17 % (12-44); MEAN CORPUSCULAR HEMOGLOBIN 22 pg (25-34); MEAN CORPUSCULAR HGB CONC 30 g/dL (32-36); MEAN CORPUSCULAR VOLUME 74 fL (80-99); MEAN PLATELET VOLUME 8.6 fL (9.0-12.2); MONOCYTES # (AUTO) 1.1 10^3/uL (0.0-1.0); MONOCYTES % (AUTO) 8 % (0-12); NEUTROPHILS # (AUTO) 10.8 10^3/uL (1.8-7.8); NEUTROPHILS % (AUTO) 72 % (42-75); PLATELET COUNT 443 10^3/uL (130-400); WHITE BLOOD COUNT 14.9 10^3/uL (4.3-11.0)
[2023-02-22] MEDS ORDERED: PRENATAL VITAMIN TABLET PO SCH (07:00)
--- NOTE | 2023-02-22 07:22 | Postpartum Progress Note ---
Note Note Day # 1 Subjective: Patient is without complaints. Ambulating, voiding. Tolerating a regular diet without nausea or vomiting. Normal lochia. Pain is well controlled with oral pain medications. Objective: Physical Exam: General - Alert and oriented, no apparent distress Abdomen - Soft, appropriately tender to palpation, non-distended, fundus firm at umbilicus Extremities - no edema, negative Tavia's bilaterally Assessment: PPD 1 NVD Acute blood loss anemia Plan: Routine care. Encourage breast feeding. Encourage ambulation. Ferrous sulfate supplementation. Plan for discharge today if BP stable Vitals - Labs Vital Signs - I&O Vital Signs Date Time Temp Pulse Resp B/P (MAP) Pulse Ox O2 Delivery O2 Flow Rate FiO2 02/22/23 04:00 36.1 95 18 136/85 (102) 100 Room Air 02/22/23 01:05 36.4 100 18 143/86 (105) 100 Room Air 02/21/23 21:21 36.6 111 18 154/78 (103) 98 Room Air 02/21/23 19:09 107 135/70 (91) 02/21/23 18:54 106 143/74 (97) 02/21/23 18:39 105 142/70 (94) 02/21/23 18:24 107 138/67 (90) 02/21/23 18:09 102 127/65 (85) 02/21/23 17:54 109 141/74 (96) 02/21/23 17:39 96 136/64 (88) 02/21/23 17:25 104 139/62 (87) 02/21/23 17:09 105 134/72 (92) 02/21/23 16:54 36.7 106 20 130/70 (90) Room Air 02/21/23 16:39 107 131/71 (91) Room Air 02/21/23 15:55 111 129/74 (92) Room Air 02/21/23 15:40 118 123/59 (80) Room Air 02/21/23 15:25 96 134/60 (84) Room Air 02/21/23 15:10 121/68 (85) Room Air 02/21/23 14:55 111 134/71 (92) Room Air 02/21/23 14:40 96 125/62 (83) Room Air 02/21/23 14:25 116 129/61 (83) Room Air 02/21/23 14:10 36.4 100 18 136/65 (88) Room Air 02/21/23 13:55 103 135/69 (91) Room Air 02/21/23 13:40 117 126/67 (86) Room Air 02/21/23 13:25 108 134/78 (96) Room Air 02/21/23 13:10 112 136/70 (92) Room Air 02/21/23 12:55 110 127/63 (84) Room Air 02/21/23 12:40 92 107/51 (69) Room Air 02/21/23 12:25 100 118/59 (78) Room Air 02/21/23 12:10 110 118/59 (78) Room Air 02/21/23 11:55 83 126/63 (84) Room Air 02/21/23 11:40 89 134/66 (88) Room Air 02/21/23 11:25 100 148/68 (94) Room Air 02/21/23 11:10 101 171/77 (108) Room Air 02/21/23 10:55 91 149/70 (96) Room Air 02/21/23 10:40 90 158/73 (101) Room Air 02/21/23 10:25 36.2 99 170/78 (108) Room Air 02/21/23 10:10 110 142/69 (93) 99 Room Air 02/21/23 09:55 99 151/74 (99) 99 Room Air 02/21/23 09:38 102 125/66 (85) 100 Room Air 02/21/23 09:33 98 134/70 (91) 100 Room Air 02/21/23 09:27 107 134/63 (86) 99 Room Air 02/21/23 09:23 103 137/65 (89) 99 Room Air 02/21/23 09:17 94 131/60 (83) 99 Room Air 02/21/23 09:12 108 144/67 (92) 99 Room Air 02/21/23 09:09 36.5 109 139/72 (94) 99 Room Air 02/21/23 09:06 103 136/74 (94) 99 Room Air 02/21/23 09:03 104 124/75 (91) 99 Room Air 02/21/23 08:57 107 133/87 (102) 100 Room Air 02/21/23 08:54 111 140/93 (109) 100 Room Air 02/21/23 08:51 115 132/83 (99) 100 Room Air 02/21/23 08:42 122 164/91 (115) 100 Room Air 02/21/23 08:39 109 150/80 (103) 100 Room Air 02/21/23 07:40 107 20 146/71 (96) Room Air I & O 02/22/23 07:00 Intake Total 2500 ml Balance 2500 ml Labs Laboratory Tests 02/22/23 05:45: White Blood Count 14.9H, Red Blood Count 4.06, Hemoglobin 9.0L, Hematocrit 30L, Mean Corpuscular Volume 74L, Mean Corpuscular Hemoglobin 22L, Mean Corpuscular Hemoglobin Concent 30L, Red Cell Distribution Width 16.1H, Platelet Count 443H, Mean Platelet Volume 8.6L, Immature Granulocyte % (Auto) 2, Neutrophils (%) (Auto) 72, Lymphocytes (%) (Auto) 17, Monocytes (%) (Auto) 8, Eosinophils (%) (Auto) 1, Basophils (%) (Auto) 0, Neutrophils # (Auto) 10.8H, Lymphocytes # (Auto) 2.6, Monocytes # (Auto) 1.1H, Eosinophils # (Auto) 0.2, Basophils # (Auto) 0.0, Immature Granulocyte # (Auto) 0.2H Microbiology 02/20/23 Urine Culture - Preliminary, Resulted Culture In Progress MARGARET BABCOCK DO Feb 22, 2023 07:21
--- NOTE | 2023-02-22 07:23 | Discharge Inst-Women's Service ---
Discharge Inst-Women's Serv Depart Medication/Instructions New, Converted or Re-Newed RX: Transmitted to Pharmacy Final Diagnosis PPD 1 NVD Problems Reviewed?: Yes Consults/Follow Up Additional Follow Up: Yes Orders/Referrals Dr. Babcock in 6 weeks Activity Activity: Activity as Tolerated Driving Instructions: No Driving for 1 Week NO SMOKING: NO SMOKING Nothing Inside Vagina: No Douching, No [place], No Tampons Diet Discharge Diet: No Restrictions Symptoms to Report to : Bleeding Excessive, Pain Increased, Fever Over 101 Degrees F, Vaginal Bleeding Increase, Questions/Concerns For Any Problems or Questions: Contact Your Physician MARGARET BABCOCK DO Feb 22, 2023 07:23
[2023-02-22] MEDS ORDERED: DIBU30OI TOP (07:26)
[2023-02-22] MEDS ORDERED: IBUP-844 PO (07:26)
[2023-02-22] MEDS ORDERED: DOCU100C37 PO (07:26)
[2023-02-22] MEDS ORDERED: BENZ78AE5 TP (07:26)
[2023-02-22] MEDS ORDERED: FERR325T24 PO (07:26)
[2023-02-22] MEDS ORDERED: ACHD5005 PO (07:26)
[2023-02-22] MEDS ORDERED: LABE200T10 PO (07:28)
[2023-02-22] MEDS: ACETAMINOPHEN 500 MG TABLET PO SCH ×2 (08:55→14:24)
[2023-02-22] MEDS: DOCUSATE SODIUM 100 MG CAPSULE PO SCH (08:55)
[2023-02-22 08:58] VITALS: BP 146/83
[2023-02-22] MEDS ORDERED: FERROUS SULFATE 325 MG (IRON) TABLET PO SCH (09:00)
[2023-02-22] MEDS ORDERED: LABETALOL 200 MG TABLET PO SCH (09:00)
--- NOTE | 2023-02-22 12:38 | Anesthesia-Regional Post-Op ---
Regional Patient Condition Mental Status: Alert, Oriented x3 Circulation: Same as Pre-Op Headache: Absent Sensation: Full Recovery Motor Block: Absent Post Op Complications Complications None Follow Up Care/Instructions Patient Instructions None needed. Anesthesia/Patient Condition Patient is doing well, no complaints, stable vital signs, no apparent adverse anesthesia problems. No complications reported per nursing. HARLAN NEAL CRNA Feb 22, 2023 12:38
[2023-02-22 14:24] VITALS: BP 139/80
== END 2023-02-22 17:55 | disposition home or self-care (01) | DRG 768 ==
LOC: LDRP 19:00
PROVIDERS: ADMIT Obstetrics & Gynecology; ATTEND Obstetrics & Gynecology
PROC: 10E0XZZ Delivery of Products of Conception, External Approach (ICD-10-PCS; principal; 2023-02-21)
PROC: 0DQR0ZZ Repair Anal Sphincter, Open Approach (ICD-10-PCS; 2023-02-21)
PROC: 3E0DXGC Introduction of Other Therapeutic Substance into Mouth and Pharynx, External Approach (ICD-10-PCS; 2023-02-21)
DX: O13.4 Gestational [pregnancy-induced] hypertension without significant proteinuria, complicating childbirth (principal); Z37.0 Single live birth; D62 Acute posthemorrhagic anemia; Z3A.38 38 weeks gestation of pregnancy; O70.20 Third degree perineal laceration during delivery, unspecified; O90.81 Anemia of the puerperium; Z88.1 Allergy status to other antibiotic agents
CPT/HCPCS: 36415; 80053; 81000; 82570; 84156; 84550; 85007; 85025; 85027; 86780; 86850; 86900; 86901; 87088